=== PATIENT | female | born 1985 | race Caucasian/White ===

== ENCOUNTER 2016-12-01 08:27 | Emergency (ER) | payer OTHER ==
--- NOTE | 2016-12-01 12:08 | ED ORDER SUMMARY ---
..... Patient: RAMSEY RED OrderSheet VisitID: [id number] [place] [address] 31y, F Registration Date/Time: 12/01/2016 ORDER SHEET Weight: 58.9 kg (stated) Allergies: No Known Drug Allergy GENERAL ORDERS: CBC w Diff Urgent (08:57 12/01/2016 Simón OJEDA) (Ack 8:59 LNations ER Tech1) (9:00 LSullivan R.N.) CMP Urgent (08:57 12/01/2016 Simón OJEDA) (Ack 8:59 LNations ER Tech1) (9:00 LSullivan R.N.) UA-Culture if indicated Urgent (08:12/01/2016 Simón OJEDA) (Ack 8:59 LNations ER Tech1) (9:00 LSullivan R.N.) Amylase Urgent (08:12/01/2016 Simón OJEDA) (Ack 8:59 LNations ER Tech1) (9:00 LSullivan R.N.) Lipase Urgent (08:57 12/01/2016 Simón OJEDA) (Ack 8:59 LNations ER Tech1) (9:00 LSullivan R.N.) Urine Urgent (08:57 12/01/2016 Simón OJEDA) (Ack 8:59 LNations ER Tech1) (9:00 LSullivan R.N.) US Abdomen Limited (Yes) Urgent (10:15 12/01/2016 Freeman OJEDA) (Ack 10:18 LNations ER Tech1) (11:37 LSullivan R.N.) MEDICATION ORDERS: GI Cocktail WHITE PO 30 mL with Lidocaine Viscous Mouth/Throat 15 mL, Maalox Plus Oral 15 mL (NOW) (10:17 12/01/2016 Freeman OJEDA) (11:37 LSullivan R.N.) Protonix PO 40 mg (Do not crush or chew, NOW) (10:17 12/01/2016 Freeman OJEDA) (10:26 LSullivan R.N.) Pepcid PO 20 mg (NOW) (10:12/01/2016 Freeman OJEDA) (10:25 LSullivan R.N.) IV FLUIDS: IV NS : initial bolus 500 mL (1000 mL/hr), then 125 mL/hr for 4h (NOW); Urgent (08:57 12/01/2016 Simón OJEDA) (9:10 LSullivan R.N.) Zofran IV 4 mg (NOW) (09:00 12/01/2016 LSullivan R.N. per protocol) (9:01 LSullivan R.N.) ORDER SHEET NOTES: [Electronically signed by Vanessa Aleman R.N. (19:12 12/02/2016)] [Electronically signed by Chelle Mcnamara MD (04:13 12/09/2016)] [Electronically locked/signed by Vanessa Aleman R.N. (19:12 12/02/2016)]
--- NOTE | 2016-12-01 12:08 | ED ORDER SUMMARY ---
..... Patient: RAMSEY RED OrderSheet [facility] VisitID: [id number] [place] [address] 31y, F Registration Date/Time: 12/01/2016 ORDER SHEET Weight: 58.9 kg (stated) Allergies: No Known Drug Allergy GENERAL ORDERS: CBC w Diff Urgent (08:57 12/01/2016 Simón OJEDA) (Ack 8:59 LNations ER Tech1) (9:00 LSullivan R.N.) CMP Urgent (08:57 12/01/2016 Simón OJEDA) (Ack 8:59 LNations ER Tech1) (9:00 LSullivan R.N.) UA-Culture if indicated Urgent (08:12/01/2016 Simón OJEDA) (Ack 8:59 LNations ER Tech1) (9:00 LSullivan R.N.) Amylase Urgent (08:12/01/2016 Simón OJEDA) (Ack 8:59 LNations ER Tech1) (9:00 LSullivan R.N.) Lipase Urgent (08:57 12/01/2016 Simón OJEDA) (Ack 8:59 LNations ER Tech1) (9:00 LSullivan R.N.) Urine Urgent (08:57 12/01/2016 Simón OJEDA) (Ack 8:59 LNations ER Tech1) (9:00 LSullivan R.N.) US Abdomen Limited (Yes) Urgent (10:15 12/01/2016 Freeman OJEDA) (Ack 10:18 LNations ER Tech1) (11:37 LSullivan R.N.) MEDICATION ORDERS: GI Cocktail WHITE PO 30 mL with Lidocaine Viscous Mouth/Throat 15 mL, Maalox Plus Oral 15 mL (NOW) (10:17 12/01/2016 Freeman OJEDA) (11:37 LSullivan R.N.) Protonix PO 40 mg (Do not crush or chew, NOW) (10:17 12/01/2016 Freeman OJEDA) (10:26 LSullivan R.N.) Pepcid PO 20 mg (NOW) (10:12/01/2016 Freeman OJEDA) (10:25 LSullivan R.N.) IV FLUIDS: IV NS : initial bolus 500 mL (1000 mL/hr), then 125 mL/hr for 4h (NOW); Urgent (08:57 12/01/2016 Simón OJEDA) (9:10 LSullivan R.N.) Zofran IV 4 mg (NOW) (09:00 12/01/2016 LSullivan R.N. per protocol) (9:01 LSullivan R.N.) ORDER SHEET NOTES: [Electronically signed by Vanessa Aleman R.N. (19:12 12/02/2016)] [Electronically signed by Chelle Mcnamara MD (04:13 12/09/2016)] [Electronically locked/signed by Vanessa Aleman R.N. (19:12 12/02/2016)]
--- NOTE | 2016-12-01 12:08 | ED CLINICAL REPORT ---
Clinical Report - Physicians/Mid Levels [facility] [address] [place] [address] 12/01/2016 8:28 Patient: RAMSEY RED Time Seen: 09:25. Arrived- By private vehicle. Historian- patient. HISTORY OF PRESENT ILLNESS Chief Complaint: ABDOMINAL PAIN. At its maximum, severity described as moderate. When seen in the E.D., severity described as moderate. Modifying factors- worsened by food. Not relieved by anything. It is described as "pain". No radiation. It is described as located in the epigastric area and in the upper abdomen. This started about 1 week ago and is still present. The patient has had nausea and loss of appetite. No vomiting or diarrhea. (Patient does note that her has been deployed recently and will be gone for a year. She states this has been stressful, though she usually handles stress well. She has no history of ulcer or any other abdominal organ problems. No family history of gallstones.). Similar symptoms previously: None. Recent medical care: Not recently seen/assessed. REVIEW OF SYSTEMS No constipation, black stools, hematemesis, difficulty with urination or pain with urination. No urinary frequency, bloody stools, fever, headache or sore throat. No blurred vision, chest pain, difficulty breathing, cough or joint pain. No skin rash, chills or back pain. Denies current . All systems otherwise negative, except as recorded above. PAST HISTORY Problems: no known problems. Additional Surgeries: no known surgeries. Medications: None. Allergies: No Known Drug Allergy. SOCIAL HISTORY Smoker- current status unknown. Occasional alcohol use. No drug use. ADDITIONAL NOTES The nursing notes have been reviewed. PHYSICAL EXAM Vital Signs: 12/01/2016 08:36 BP: 119/80. HR: 81. RR: 18. O2 saturation: 99%. Temp: 98.3 F. Pain level now: 5/10. Have been reviewed. Appearance: Alert. Oriented X3. No acute distress. Eyes: Pupils equal, round and reactive to light. Eyes normal inspection. ENT: Nose normal. Neck: Normal inspection. CVS: Normal heart rate and rhythm. Heart sounds normal. Pulses normal. Respiratory: No respiratory distress. Breath sounds normal. Abdomen: Soft. Moderate tenderness in the epigastric area. No guarding or rebound tenderness. Mild additional tenderness in the right upper quadrant, left upper quadrant and suprapubic area. Back: Normal inspection. No CVA tenderness. Skin: Skin warm and dry. Normal skin color. No rash. Normal skin turgor. Extremities: Extremities exhibit normal ROM. No lower extremity edema. Neuro: Oriented X 3. No motor deficit. No sensory deficit. LABS, X-RAYS, AND EKG Abdominal Sonogram: Normal study. The gallbladder is normal. Common duct is normal. Normal liver. Pancreas normal. No free fluid. Study included the gallbladder. Prior studies were not available for comparison. The study was interpreted by the radiologist and discussed with the radiologist. Laboratory Tests: UA-Culture if indicated: (KARYN: 12/01/2016 08:45) ( [facility] 12/01/2016 09:46) Final results Test Result Flag Units (Reference) URINE COLOR YELLOW URINE APPEARANCE CLEAR URINE GLUCOSE NEGATIVE (NEGATIVE) URINE BILIRUBIN NEGATIVE (NEGATIVE) URINE KETONE NEGATIVE (NEGATIVE) URINE SPECIFIC GRAVITY 1.020 (1.010-1.030) URINE PH 6.0 (5.0-8.0) URINE PROTEIN NEGATIVE (NEGATIVE) URINE UROBILINOGEN 0.2 EU/dL (0.2-1.0) URINE NITRITE NEGATIVE (NEGATIVE) URINE BLOOD NEGATIVE (NEGATIVE) URINE LEUK ESTERASE NEGATIVE (NEGATIVE) URINE RBC NONE SEEN rbc/hpf (0-1) URINE WBC NONE SEEN wbc/hpf (0-1) URINE EPITHELIAL CELLS 0-1 EPI/hpf (0-5) URINE BACTERIA NONE SEEN (NONE SEEN) URINE COMMENT CULT NOT INDICATED URINE CULTURES ARE SET-UP BASED ON THE FOLLOWING CRITERIA:POSITIVE NITRITEPOSITIVE LEUKOCYTE ESTERASEGREATER THAN 10 WHITE BLOOD CELLSMODERATE (2+) OR GREATER BACTERIA Urine: (KARYN: 12/01/2016 08:45) ( [facility] 12/01/2016 09:24) Final results Test Result Flag Units (Reference) URINE NEGATIVE CBC w Diff: (KARYN: 12/01/2016 08:50) ( MsgRcvd 12/01/2016 09:23) Final results Test Result Flag Units (Reference) WHITE BLOOD COUNT 7.8 K/uL (4.5-11.5) RED BLOOD COUNT 4.28 M/uL (4.00-5.20) HEMOGLOBIN 13.4 gm/dL (12.0-16.0) HEMATOCRIT 40.2 % (36.0-46.0) MEAN CELL VOLUME 94 fL (80-100) MEAN CORPUSCULAR HGB 31 pg (26-34) MEAN CORPUSCULAR HGB CONC 33 g/dL (31-37) RED CELL DISTRIBUTION WIDTH 13.2 % (11.6-14.8) PLATELET COUNT 260 K/uL (150-400) NEUTROPHIL % 76.0 H % (50-75) LYMPH % 17.0 L % (25-40) MONO % 5.8 % (3-14) EOSINOPHIL % 0.8 % (0-4) BASOPHIL % 0.4 % (0-2) CMP: (KARYN: 12/01/2016 08:50) ( MsgRcvd 12/01/2016 09:44) Final results Test Result Flag Units (Reference) GLUCOSE 107 mg/dL (70-110) BUN 7 mg/dL (7-18) CREATININE 0.9 mg/dL (0.6-1.3) Estimated GFR >60 mL/min Estimated GFR- >60 mL/min Note: Persistent reduction over 3 months in eGFR<60 mL/min/1.73 m2 defines CKD. Patients with eGFR values>=60 mL/min/1.73 m2 may also have CKD if evidence ofpersistent proteinuria. Additional information may be foundat www.kidney.org. SODIUM 142 mmol/L (136-145) POTASSIUM 4.0 mmol/L (3.5-5.1) CHLORIDE 105 mmol/L (98-107) CARBON DIOXIDE 24 mmol/L (21-32) CALCIUM 8.7 mg/dL (8.5-10.1) TOTAL PROTEIN 7.5 g/dL (6.4-8.2) ALBUMIN 4.3 g/dL (3.3-5.0) BILIRUBIN, TOTAL 0.7 mg/dL (0.0-1.0) ALKALINE PHOSPHATASE 47 U/L (46-116) AST (SGOT) 21 U/L (15-37) ALT (SGPT) 24 U/L (12-78) LIPASE 244 U/L (73-393) AMYLASE 100 U/L (25-115) . Pulse Oximetry: 12/01/2016 08:36 O2 saturation: 99%. (FIO2 - room air). Interpretation: normal. PROGRESS AND PROCEDURES Course of Care: Patient was treated symptomatically with IV fluids, GI cocktail, Protonix, and Pepcid. She was worked up for her pain withurinalysis, which was negative and laboratory studies, which were unremarkable, including a normal lipase. Patient's test was negative. I did opt to get an ultrasound of the right upper quadrant to evaluate the patient's intermittent upper abdominal pain. This was found to be negative. Patient counseled in person regarding the patient's stable condition, test results, diagnosis and need for follow-up. Old medical records reviewed. Disposition: Discharged. Condition: stable. CLINICAL IMPRESSION Gastroesophageal reflux disease. Acute gastritis. No alcoholic gastritis or hemorrhagic gastritis. INSTRUCTIONS Drink plenty of fluids. (Your labs and ultrasound look good. Please take the stomach medications, as prescribed, and follow up with the recommended doctor, or the doctor of your choice, to discuss whether you need an endoscopy or other testing.). Warnings: GENERAL WARNINGS: Return or contact your physician immediately if your condition worsens or changes unexpectedly, if not improving as expected, or if other problems arise. Prescription Medications: Zofran (orally disintegrating tablets) 4 mg: take 1 orally every 6 hours as needed for nausea. Dispense fifteen (15). No refill. Prilosec 20 mg capsules: take 1 capsule orally every day. Dispense thirty (30). No refill. Substitution is permissible. Zantac 150 mg: take 1 orally every 12 hours. Dispense sixty (60). No refills. Substitution is permissible. Understanding of the discharge instructions verbalized by patient. Follow-up with: [facility] [place] [facility], , [address] [place] [address], [id number], [place] [id number] Follow up. Call for the next available appointment. Reason for referral: Follow up ER visit for abdominal pain. (Electronically signed by Chelle Mcnamara MD 12/09/2016 4:13)
--- NOTE | 2016-12-01 12:08 | ED NURSING NOTES ---
Clinical Report - Nurses [facility] [place] [address] 12/01/2016 8:28 Patient: RAMSEY RED TRIAGE Triage time 08:36. Acuity: LEVEL 3. Chief Complaint: ABDOMINAL PAIN and NAUSEA. Alert. --08:39 Vanessa Aleman R.N. 08:36 12/01/16. BP: 119/80. HR: 81. RR: 18. O2 saturation: 99%. Temp: 98.3 F. Pain level now: 11/10. --08:39 Vanessa Aleman R.N. Weight: 58.9 kg stated. Height/Length: 68 inches Per Patient. BMI: 19.7. --08:37 Vanessa Aleman R.N. Medications None. --08:37 Vanessa Aleman R.N. Allergies No Known Drug Allergy. --08:37 Vanessa Aleman R.N. History Arrived by private vehicle. Historian: patient. Primary physician (none). This started yesterday. Onset. (and last week). Treatment CAB DRIVER: None. PAST MEDICAL HX: Negative. SURGERY HX: No history of previous surgery. SOCIAL HX: Light tobacco smoker. Occasional alcohol use. No drug use. FALL RISK ASSESSMENT: Fall risk assessment completed. No fall risk identified. FUNCTIONAL ASSESSMENT: Functional assessment: no impairments noted. LEARNING NEEDS ASSESSMENT: The learning needs assessment revealed no barriers. --08:39 Vanessa Aleman R.N. Interventions ID band on patient. To room. --08:39 Vanessa Aleman R.N. PHYSICAL ASSESSMENT 08:39 12/01/16. GENERAL / NEURO / PSYCH: Alert. Oriented X 4. RESPIRATORY: Respirations not labored. --08:39 Vanessa Aleman R.N. NURSING PROGRESS NOTES 08:39 12/01/16. Patient identifiers checked. Call light placed in reach. Bed placed in lowest position. Patient ready for evaluation- chart flagged. --08:39 Vanessa Aleman R.N. 08:59 12/01/16. Patient ID band checked for patient name and birthdate: patient confirmed. Clean catch urine collected with return of yellow-colored clear urine; sample sent to lab. Specimen labeled in the presence of the patient. --08:59 Vanessa Aleman R.N. 09:01 12/01/2016 Site #1 started via IV in the right wrist with an 20g angiocath, with aseptic technique and good blood return; one attempt. Blood drawn: rainbow set. Labeled in the presence of the patient and sent to the lab. Saline lock flushed with 10 mL saline. --09:01 Vanessa Aleman R.N. 09:01 12/01/2016 Zofran (Ondansetron HCl) IVP 4 mg given over 2 minute(s) via site #1. Allergies verified and confirmed 5 rights. --09:01 Vanessa Aleman R.N. 09:10 12/01/2016 Started bag #1 1000 mL IV Fluids IV NS (Saline); at 999 mL/hr over 30 minute(s) via site #1 via IV pump. Confirmed 5 rights. IV patency established. IV site checked: no pain, redness, or swelling. IV flushed thoroughly pre- and post-medication administration (for 500 ml bolus). --09:10 Vanessa Aleman R.N. 10:25 12/01/2016 Pepcid (Famotidine) PO 20 mg given. Confirmed 5 rights. --10:25 Vanessa Aleman R.N. 10:26 12/01/2016 Protonix (Pantoprazole Sodium) PO 40 mg given. Confirmed 5 rights. --10:26 Vanessa Aleman R.N. 10:45-11:15. ( US in room). --11:16 Vanessa Aleman R.N. 11:32 12/01/2016 GI COCKTAIL WHITE (Simethicone) PO 45 mL given. Confirmed 5 rights. --11:37 Vanessa Aleman R.N. 11:37 12/01/16. BP: 100/65. HR: 66. RR: 18. O2 saturation: 100%. --11:37 Vanessa Aleman R.N. 12:12 12/01/2016 IV Fluids IV NS Discontinued: bag #1 discontinued upon discharge. Total amount infused: 850 mL. IV patency established. IV site checked: no pain, redness, or swelling. IV flushed thoroughly. --12:18 Vanessa Aleman R.N. DISPOSITION / DISCHARGE 12:12 12/01/2016 Site #1 removed upon discharge. Catheter intact. Bandage applied. --12:17 Vanessa Aleman R.N. Departure time: 1212. Condition at departure: improved. No learning barriers present. Discharge instructions provided and reviewed with the patient. Reviewed medication(s) information. Prescription(s) given to the patient. Reviewed referral to family practice for followup. Patient verbalized understanding. Written instructions provided. The patient was discharged home and accompanied by spouse. She left the Emergency Department ambulatory and via private vehicle. FALL RISK ASSESSMENT: Fall risk assessment completed. No fall risk identified. --12:18 Vanessa Aleman R.N. 12:12 12/01/16. BP: 107/64. HR: 71. RR: 18. O2 saturation: 100%. Pain level now: 09/10. --12:18 Vanessa Aleman R.N. Locked/Released at 12/02/2016 19:12 by Vanessa Aleman R.N.
--- NOTE | 2016-12-01 12:29 | DIAGNOSTIC IMAGING REPORT ---
PROCEDURE: US ABDOMEN ULTRASOUND-LIMITED INDICATION: RUQ PAIN TECHNIQUE: Pedroza scale and color Doppler sonographic images of the abdomen were obtained. COMPARISON: None. FINDINGS: Liver measures 15.7 cm with mild increased echogenicity. There is a 2.5 x 2.1 x 1.4 cm hypoechoic area in the left hepatic lobe without increased vascularity. Normal gallbladder and CBD, 3 mm. Normal pancreas. Aorta and IVC are patent. Normal hepatopetal flow. Normal right kidney measures 11.2 cm. Bilateral ureteral jets visualized. Ultrasound of the right lower quadrant demonstrates a small amount of free fluid. A right lower quadrant viscus labeled "appendix" appears normal. No right lower quadrant mass. IMPRESSION: 1. Echogenic liver suggestive of steatosis versus intrinsic liver disease 2. 2.5 cm left hepatic lobe hypoechoic area. Differential includes focal sparing or mass (adenoma). Correlate with LFTs. 3. Results discussed with Dr. Mcnamara
--- NOTE | 2016-12-09 04:13 | ED DISCHARGE INSTRUCTIONS ---
Patient: RAMSEY RED General Instructions Formerly [facility] VisitID: [id number] Felicia Hopkinsjose [place] [id number] 31y, F Registration Date/Time: 12/01/2016 Gastroesophageal reflux disease. Acute gastritis. No alcoholic gastritis or hemorrhagic gastritis. INSTRUCTIONS Drink plenty of fluids. (Your labs and ultrasound look good. Please take the stomach medications, as prescribed, and follow up with the recommended doctor, or the doctor of your choice, to discuss whether you need an endoscopy or other testing.). Warnings: GENERAL WARNINGS: Return or contact your physician immediately if your condition worsens or changes unexpectedly, if not improving as expected, or if other problems arise. Prescription Medications: Zofran (orally disintegrating tablets) 4 mg: take 1 orally every 6 hours as needed for nausea. Dispense fifteen (15). No refill. Prilosec 20 mg capsules: take 1 capsule orally every day. Dispense thirty (30). No refill. Substitution is permissible. Zantac 150 mg: take 1 orally every 12 hours. Dispense sixty (60). No refills. Substitution is permissible. Understanding of the discharge instructions verbalized by patient. Follow-up with: [facility], , [address] [place] [address], [address], [place] [address] Follow up. Call for the next available appointment. Reason for referral: Follow up ER visit for abdominal pain. ADDITIONAL INFORMATION Gastritis Versus Ulcer (No Antibiotic Tx) The symptoms of gastritis and peptic ulcer are very similar. Both can cause a dull ache or burning pain in the upper abdomen. Other symptoms include nausea, vomiting, loss of appetite, and belching or bloating. Blood in the vomit or stools (red or black) is a sign of bleeding in the stomach. This requires immediate medical attention. A Peptic Ulcer is an open sore in the lining of the stomach or duodenum (upper intestine). The most common cause of peptic ulcer disease is a bacterial infection (H pylori) in the stomach. Another common cause is taking anti-inflammatory medications (such as ibuprofen, prednisone, and aspirin). Gastritis is an irritation of the stomach lining. It can be acute (recent) or chronic (lasting a long time). Gastritis can be caused by overuse of alcohol or anti-inflammatory medications (such as aspirin, ibuprofen, prednisone). H pyloriinfection can also cause chronic gastritis. Tests for H pyloriare used to screen for bacterial infection. If no infection is found, ulcer and gastritis can be treated by stopping the cause, such as anti-inflammatory medications, alcohol, caffeine, and tobacco, and treating with antacids plus an acid christine medication. If H pylori infection is found, antibiotics will be prescribed along with an acid christine. Persons 55 years and older may undergo other tests before treatment is started. Two common tests are used to evaluate your symptoms. An upper GI series is an x-ray taken after you drink a chalky liquid called barium. This coats the stomach and allows an ulcer to show up on the x-ray. Another test is called endoscopy during which a long thin tube called an endoscope is passed down your throat to the stomach. A camera at the end of the scope allows the doctor to view inside the stomach to check the cause of your symptoms. Home Care: Take the prescribed acid christine medication for the full course of treatment even if you begin to feel better sooner. This medication can take up to several days to fully control your symptoms. If you cant afford the prescribed medication, you can try adwy-uvx-fabdhbb acid blockers, such as Pepcid AC, Tagamet, Zantac, or Aciphex. If these do not relieve your symptoms, a stronger acid-christine can be tried, such as Prilosec OTC. If you have been prescribed an antibiotic to treat H pyloriinfection, finish the full course of medication. Do so even if you begin to feel better sooner. If you stop the medication too soon, the infection can return and be harder to treat. You can use antacids, such as Tums, Rolaids, Mylanta, or Maalox, for pain. This will be useful the first few days after starting acid blockers when the blockers havent started working yet. Follow the directions on the label. Liquid antacids may work better than tablets. Note that antacids can interfere with absorption of certain medications. Specifically, do not take Tagamet (cimetidine), Zantac (ranitidine), or Carafate (sucralfate) within 1 hour of taking an antacid. Talk with your pharmacist if you have any questions. Although foods do not cause an ulcer, symptoms can be worsened by certain foods. Limit or avoid fatty, fried, and spicy foods, as well as coffee, chocolate, mint, and foods with high acid content such as tomatoes and citrus fruit and juices (orange, grapefruit, lemon). Avoid alcohol, caffeine, and tobacco, which can delay healing. Avoid aspirin and anti-inflammatory medications such as ibuprofen (Advil, Motrin) and naproxen (Naprosyn, Aleve). Acetaminophen (Tylenol) is safe to use. Do not take more than the amount listed on the label. Follow Up with your doctor or as advised. Further testing may be needed. If you do not begin to improve over the next 4 days, contact your doctor. If you had tests, youll be notified of any new findings that affect your care. Get Prompt Medical Attention if any of the following occur: Stomach pain gets worse or moves to the lower right abdomen (appendix area) Chest pain appears or gets worse, or spreads to the back, neck, shoulder, or arm Frequent vomiting (cant keep down liquids) Blood in the stool or vomit (red or black in color) Feeling weak or dizzy, fainting, or trouble breathing Fever of 100.4F (38C) or higher, or as directed by your healthcare provider GERD (Adult) The esophagus is a tube that carries food from the mouth to the stomach. A valve at the lower end of the esophagus prevents stomach acid from flowing upward. If this valve does not work properly, acid from the stomach enters the esophagus. If this occurs over and over, the acid will injure the lining of the esophagus. This condition is called GERD (gastroesophageal reflux disease) or acid reflux. When stomach acid flows upward into the esophagus, it causes burning, pressure or sharp pain in the upper abdomen or mid to lower chest. The pain can spread to the neck, back, or shoulder, similar to heart pain (angina). There may be belching, an acid taste in the back of the throat, chronic cough, or sore throat or hoarseness. GERD symptoms often occur during the day after a big meal, but it can also occur at night when lying down. Smoking,as well as drinking alcohol, increases the risk of GERD. GERD is a chronic condition. Once it begins, it is often lifelong. Treatment includes changes in eating habits and the use of acid christine medications to decrease the amount of acid in the stomach. Symptoms often improve with treatment, but if treatment is stopped, the symptoms usually return after a few months. So most persons with GERD will need to continue treatment. Home Care: Take the prescribed acid christine medication for the full course of treatment even if you begin to feel better sooner. This medication can take up to several days to fully control your symptoms. If you cant afford the prescribed medication, you can try hsbi-tws-evddqxv acid blockers, such as Pepcid AC, Tagamet, Zantac, or Aciphex. If these do not relieve your symptoms, a stronger acid-christine can be tried, such as Prilosec OTC. You can use antacids, such as Tums, Rolaids, Mylanta, or Maalox, for pain. This will be useful the first few days after starting acid blockers when the blockers havent started working yet. Follow the directions on the label. Liquid antacids may work better than tablets. Note that antacids can interfere with absorption of certain medications. Specifically, do not take Tagamet (cimetidine), Zantac (ranitidine), or Carafate (sucralfate) within 1 hour of taking an antacid. Talk with your pharmacist if you have any questions. Limit or avoid fatty, fried, and spicy foods, as well as coffee, chocolate, mint, and foods with high acid content such as tomatoes and citrus fruit and juices (orange, grapefruit, lemon). Avoid alcohol and smoking. Dont eat large meals, especially at night. Frequent, smaller meals are best. Do not lie down right after eating. And dont eat anything 3 hours before going to bed. If you are overweight, losing weight will reduce symptoms. Women should not wear corsets or girdles because this increases pressure on the stomach and worsens reflux. If your symptoms occur during sleep, use a foam wedge to elevate your upper body (not just your head.) Or, place 4" blocks under the head of your bed. Follow Up with your doctor or as advised by our staff. Further testing may be needed. If you do not begin to improve over the next 4 days, contact your doctor. If you had an x-ray, CT scan, or ECG (electrocardiogram), it will be reviewed by a specialist. Youll be notified of any new findings that affect your care. Get Prompt Medical Attention if any of the following occur: Stomach pain gets worse or moves to the lower right abdomen (appendix area) Chest pain appears or gets worse, or spreads to the back, neck, shoulder, or arm Frequent vomiting (cant keep down liquids) Blood in the stool or vomit (red or black in color) Feeling weak or dizzy, fainting, or trouble breathing Fever of 100.4F (38C) or higher, or as directed by your healthcare provider You have been given the following additional information: Gastritis Vs. Ulcer GERD (Adult) (Electronically signed by Chelle Mcnamara MD 12/09/2016 4:13)
--- NOTE | 2016-12-09 04:13 | ED MAR SUMMARY ---
..... Medication Administration Record [facility] [address] [place] [address] Patient: RAMSEY RED Visit ID: [id number] 31y, F Weight: 58.9 kg Height/Length: 68 in BMI: 19.7 ALLERGIES: No Known Drug Allergy Given 09:01 12/01/2016 Vanessa Aleman R.N. Medication Administered: ZOFRAN [IVP] (ONDANSETRON HCL), Dose: 4 mg IVP over 2 minute(s), Site: #1 right wrist. Medication Ordered: Zofran IV 4 mg (NOW). Start 09:10 12/01/2016 Vanessa Aleman R.N., Stop 12:12 12/01/2016 Vanessa Aleman R.N. Medication Administered: IV NS (SALINE), Dose: IV Fluids over 30 minute(s), Rate: 999 mL/hr, Dispensed: 1000 mL bag, Site: #1 right wrist. Medication Ordered: IV NS : initial bolus 500 mL (1000 mL/hr), then 125 mL/hr for 4h (NOW); Urgent. Given 10:25 12/01/2016 Vanessa Aleman R.N. Medication Administered: PEPCID [PO] (FAMOTIDINE), Dose: 20 mg PO. Medication Ordered: Pepcid PO 20 mg (NOW). Given 10:26 12/01/2016 Vanessa Aleman R.N. Medication Administered: PROTONIX [PO] (PANTOPRAZOLE SODIUM), Dose: 40 mg PO. Medication Ordered: Protonix PO 40 mg (Do not crush or chew, NOW). Given 11:32 12/01/2016 Vanessa Aleman R.N. Medication Administered: GI COCKTAIL WHITE [PO] (SIMETHICONE), Dose: 45 mL PO. Medication Ordered: GI Cocktail WHITE PO 30 mL with Lidocaine Viscous Mouth/Throat 15 mL, Maalox Plus Oral 15 mL (NOW).
--- NOTE | 2016-12-09 04:13 | ED MAR SUMMARY ---
..... Medication Administration Record [facility] [address] [place] [address] Patient: RAMSEY RED Visit ID: [id number] 31y, F Weight: 58.9 kg Height/Length: 68 in BMI: 19.7 ALLERGIES: No Known Drug Allergy Given 09:01 12/01/2016 Vanessa Aleman R.N. Medication Administered: ZOFRAN [IVP] (ONDANSETRON HCL), Dose: 4 mg IVP over 2 minute(s), Site: #1 right wrist. Medication Ordered: Zofran IV 4 mg (NOW). Start 09:10 12/01/2016 Vanessa Aleman R.N., Stop 12:12 12/01/2016 Vanessa Aleman R.N. Medication Administered: IV NS (SALINE), Dose: IV Fluids over 30 minute(s), Rate: 999 mL/hr, Dispensed: 1000 mL bag, Site: #1 right wrist. Medication Ordered: IV NS : initial bolus 500 mL (1000 mL/hr), then 125 mL/hr for 4h (NOW); Urgent. Given 10:25 12/01/2016 Vanessa Aleman R.N. Medication Administered: PEPCID [PO] (FAMOTIDINE), Dose: 20 mg PO. Medication Ordered: Pepcid PO 20 mg (NOW). Given 10:26 12/01/2016 Vanessa Aleman R.N. Medication Administered: PROTONIX [PO] (PANTOPRAZOLE SODIUM), Dose: 40 mg PO. Medication Ordered: Protonix PO 40 mg (Do not crush or chew, NOW). Given 11:32 12/01/2016 Vanessa Aleman R.N. Medication Administered: GI COCKTAIL WHITE [PO] (SIMETHICONE), Dose: 45 mL PO. Medication Ordered: GI Cocktail WHITE PO 30 mL with Lidocaine Viscous Mouth/Throat 15 mL, Maalox Plus Oral 15 mL (NOW).
--- NOTE | 2016-12-09 04:14 | ED MED RECONCILIATION SUMMARY ---
Patient: RAMSEY RED Medication Reconciliation Report [facility] VisitID: [id number] [place] [address] 31y, F Registration Date/Time: 12/01/2016 Weight: 58.9 kg Height/Length: 68 in. BMI: 19.7 ALLERGIES: No Known Drug Allergy The patient's Home Medications are listed below: NONE. The source(s) of the original Home Medication information: Not obtained. The following Medications were given to the patient in the Emergency Department: Zofran [IVP] IVP 4 mg, administered: 12/01/2016 9:01:00 AM IV NS IV Fluids bolus 0, then 999 mL/hr, administered: 12/01/2016 9:10:00 AM Pepcid [PO] PO 20 mg, administered: 12/01/2016 10:25:00 AM Protonix [PO] PO 40 mg, administered: 12/01/2016 10:26:00 AM GI COCKTAIL WHITE [PO] PO 45 mL, administered: 12/01/2016 11:32:00 AM The following Medications were prescribed to the patient: Zofran (orally disintegrating tablets) 4 mg: take 1 orally every 6 hours as needed for nausea. Dispense fifteen (15). No refill. -- Chelle Mcnamara MD Prilosec 20 mg capsules: take 1 capsule orally every day. Dispense thirty (30). No refill. Substitution is permissible. -- Chelle Mcnamara MD Zantac 150 mg: take 1 orally every 12 hours. Dispense sixty (60). No refills. Substitution is permissible. -- Chelle Mcnamara MD
--- NOTE | 2016-12-09 04:14 | ED MED RECONCILIATION SUMMARY ---
Patient: RAMSEY RED Medication Reconciliation Report [facility] VisitID: [id number] [place] [address] 31y, F Registration Date/Time: 12/01/2016 Weight: 58.9 kg Height/Length: 68 in. BMI: 19.7 ALLERGIES: No Known Drug Allergy The patient's Home Medications are listed below: NONE. The source(s) of the original Home Medication information: Not obtained. The following Medications were given to the patient in the Emergency Department: Zofran [IVP] IVP 4 mg, administered: 12/01/2016 9:01:00 AM IV NS IV Fluids bolus 0, then 999 mL/hr, administered: 12/01/2016 9:10:00 AM Pepcid [PO] PO 20 mg, administered: 12/01/2016 10:25:00 AM Protonix [PO] PO 40 mg, administered: 12/01/2016 10:26:00 AM GI COCKTAIL WHITE [PO] PO 45 mL, administered: 12/01/2016 11:32:00 AM The following Medications were prescribed to the patient: Zofran (orally disintegrating tablets) 4 mg: take 1 orally every 6 hours as needed for nausea. Dispense fifteen (15). No refill. -- Chelle Mcnamara MD Prilosec 20 mg capsules: take 1 capsule orally every day. Dispense thirty (30). No refill. Substitution is permissible. -- Chelle Mcnamara MD Zantac 150 mg: take 1 orally every 12 hours. Dispense sixty (60). No refills. Substitution is permissible. -- Chelle Mcnamara MD
== END 2016-12-01 12:12 | disposition home or self-care (01) ==
LOC: ED SRH 08:27
DX: K21.9 Gastro-esophageal reflux disease without esophagitis (principal); K29.00 Acute gastritis without bleeding
CPT/HCPCS: 90004; 90100; 92235; 92530; 93070; 95059